=== PATIENT | female | born 1990 | race Caucasian/White ===

== ENCOUNTER 2017-03-01 15:16 | Emergency (ER) | payer OTHER ==
[2017-03-01 15:38] VITALS: BP 144/88; PULSE 99; RESP 18; TEMP 98.7; O2SAT 99
[2017-03-01] MEDS ORDERED: Naproxen 500 MG TAB PO ONE ×2 (15:51→15:53)
--- NOTE | 2017-03-01 16:23 | ED PDOC ---
HPI: CCC, URI, Sore Throat Time Seen by Provider: 03/01/17 15:45 Chief Complaint (Nursing): ENT Problem Chief Complaint (Provider): ENT Problem History Per: Patient Onset/Duration Of Symptoms: Days (x2) Additional Complaint(s): Sylvie Koo, 26 year old female presents to the ED on 03/01/17 with a left earache occurring for 2 days prior to arrival along with a right earache beginning a few hours prior to arrival. The patient has a history of ear infections. She denies any hearing changes, sore throat, fever, and has no past pertinent medical history. Past Medical History Reviewed: Historical Data, Nursing Documentation, Vital Signs Vital Signs: Last Vital Signs Temp 98.7 F 03/01/17 15:35 Pulse 99 H 03/01/17 15:35 Resp 18 03/01/17 15:35 BP 144/88 03/01/17 15:35 Pulse Ox 99 03/01/17 16:25 - Medical History PMH: Anxiety - Family History Family History: States: Unknown Family Hx - Home Medications Home Medications: Ambulatory Orders Medication Instructions Recorded Amoxicillin/Clavulanate Pota 1 tab PO BID #14 tab 06/08/15 [Augmentin 875 mg-125 mg] Ibuprofen [Motrin] 600 mg PO Q6H PRN #15 tab 06/08/15 Amoxicillin/Clavulanate [Augmentin 1 tab PO BID #20 tab 03/01/17 500 MG-125 MG] Naproxen [Naprosyn] 500 mg PO BID PRN #30 tab 03/01/17 - Allergies Allergies/Adverse Reactions: Allergies Allergy/AdvReac Type Severity Reaction Status Date / Time No Known Allergies Allergy Verified 06/08/15 12:35 Review of Systems Constitutional: Negative for: Fever ENT: Positive for: Ear Pain (left and right earache ). Negative for: Other (no hearing changes; no sore throat) Physical Exam - Reviewed Nursing Documentation Reviewed: Yes Vital Signs Reviewed: Yes - Physical Exam Appears: Positive for: Non-toxic, No Acute Distress Head Exam: Positive for: ATRAUMATIC, NORMOCEPHALIC Skin: Positive for: Normal Color, Warm, Dry Eye Exam: Positive for: Normal appearance ENT: Positive for: Normal ENT Inspection, TM Is/Are (bilateral TM's are erythematous and bulging). Negative for: Pharyngeal Erythema, Tonsillar Exudate (and no tonsillar erythema ) Neck: Positive for: Normal, Painless ROM Cardiovascular/Chest: Positive for: Regular Rate, Rhythm, Chest Non Tender Respiratory: Positive for: Normal Breath Sounds. Negative for: Respiratory Distress Gastrointestinal/Abdominal: Positive for: Normal Exam, Soft. Negative for: Tenderness Back: Positive for: Normal Inspection Extremity: Positive for: Normal ROM Neurologic/Psych: Positive for: Alert, Oriented (x3) - ECG O2 Sat by Pulse Oximetry: 99 (RA) Pulse Ox Interpretation: Normal Medical Decision Making Medical Decision Makin:45 Initial Impression: Earache Initial Plan: * Naproxen 500 mg PO Once * Reevaluation Scribe Attestation: Documented by Emilia Staley, acting as a scribe for Phillip Morales PA-C. Provider Scribe Attestation: All medical record entries made by the Scribe were at my direction and personally dictated by me. I have reviewed the chart and agree that the record accurately reflects my personal performance of the history, physical exam, medical decision making, and the department course for this patient. I have also personally directed, reviewed, and agree with the discharge instructions and disposition. Disposition - Clinical Impression Clinical Impression: Otitis media - Patient ED Disposition Is Patient to be Admitted: No - Disposition Referrals: [facility] [Outside] Denis Badillo MD [Staff Provider] - Disposition Time: 16:28 Condition: STABLE Prescriptions: Amoxicillin/Clavulanate [Augmentin 500 MG-125 MG] 1 tab PO BID #20 tab Naproxen [Naprosyn] 500 mg PO BID PRN #30 tab PRN Reason: Pain Instructions: Otitis Media (ED) Print Language: GAMBIAN
== END 2017-03-01 16:30 | disposition home or self-care (01) ==
LOC: H.ER 15:16
DX: H66.90 Otitis media, unspecified, unspecified ear (principal)

== ENCOUNTER 2017-06-07 03:27 | Emergency (ER) | payer MEDICAID, OTHER ==
[2017-06-07 03:40] VITALS: BP 141/98; PULSE 128; RESP 17; TEMP 98.6; O2SAT 99
--- NOTE | 2017-06-07 04:00 | ED PDOC ---
HPI: Psych/Substance Abuse Time Seen by Provider: 06/07/17 03:34 Chief Complaint (Nursing): Psychiatric Evaluation Chief Complaint (Provider): Psych evaluation History Per: Patient Additional Complaint(s): Patient is a 27 year old female who was brought to the emergency department by her father for a psych evaluation, reporting that she is upset because her friend was murdered two weeks ago. PCP: none provided. Past Medical History Reviewed: Historical Data, Nursing Documentation, Vital Signs Vital Signs: Last Vital Signs Temp 98.6 F 06/07/17 03:36 Pulse 128 H 06/07/17 03:36 Resp 17 06/07/17 03:36 BP 141/98 H 06/07/17 03:36 Pulse Ox 99 06/07/17 03:36 - Medical History PMH: Anxiety - Surgical History Other surgeries: Colostomy - Family History Family History: States: Unknown Family Hx - Social History Current smoker - smoking cessation education provided: Yes (a few cigarettes a day) Alcohol: Social Drugs: Denies - Home Medications Home Medications: Ambulatory Orders Medication Instructions Recorded Amoxicillin/Clavulanate Pota 1 tab PO BID #14 tab 06/08/15 [Augmentin 875 mg-125 mg] Ibuprofen [Motrin] 600 mg PO Q6H PRN #15 tab 06/08/15 Amoxicillin/Clavulanate [Augmentin 1 tab PO BID #20 tab 03/01/17 500 MG-125 MG] Naproxen [Naprosyn] 500 mg PO BID PRN #30 tab 03/01/17 - Allergies Allergies/Adverse Reactions: Allergies Allergy/AdvReac Type Severity Reaction Status Date / Time No Known Allergies Allergy Verified 06/08/15 12:35 Review of Systems ROS Statement: Except As Marked, All Systems Reviewed And Found Negative Psych: Positive for: Anxiety Physical Exam - Reviewed Nursing Documentation Reviewed: Yes Vital Signs Reviewed: Yes - Physical Exam Appears: Positive for: Non-toxic Head Exam: Positive for: ATRAUMATIC, NORMAL INSPECTION, NORMOCEPHALIC Skin: Positive for: Normal Color, Warm, Dry Eye Exam: Positive for: Normal appearance, PERRL Neck: Positive for: Normal, Supple Cardiovascular/Chest: Positive for: Regular Rate, Rhythm. Negative for: Murmur Respiratory: Positive for: Normal Breath Sounds. Negative for: Accessory Muscle Use, Respiratory Distress Gastrointestinal/Abdominal: Positive for: Normal Exam, Soft Extremity: Positive for: Normal ROM. Negative for: Pedal Edema Neurologic/Psych: Positive for: Alert, Oriented - ECG O2 Sat by Pulse Oximetry: 99 (RA) Pulse Ox Interpretation: Normal Medical Decision Making Medical Decision Making: Time: 03:55 Initial Plan:psych eval. -Crisis Evaluation -Urine -Reevaluation 04:28 pt initially placed on a 1-1 until seen by crisis Clinical Impression: Grief Patient is cleared for discharge by Dr. Bennett. pt agreeable to plan.. Upon provider reevaluation patient is feeling better, is medically stable, and requires no further treatment in the ED at this time. Counseling was provided and all questions were answered regarding diagnosis. There is agreement to discharge plan. Return if symptoms persist or worsen. Scribe Attestation: Documented by Bertha Mistry, acting as a scribe for Soni Sands MD Provider Scribe Attestation: All medical record entries made by the Scribe were at my direction and personally dictated by me. I have reviewed the chart and agree that the record accurately reflects my personal performance of the history, physical exam. Disposition - Clinical Impression Clinical Impression: Grief reaction - Patient ED Disposition Is Patient to be Admitted: No Counseled Patient/Family Regarding: Studies Performed, Diagnosis, Need For Followup - Disposition Referrals: [facility] [Outside] [facility] [[facility]] Disposition: Routine/Home Disposition Time: 05:00 Condition: IMPROVED Additional Instructions: follow up with mental health return to the ED with any worsening or concerning symptoms. Instructions: Grief and Loss (ED) Forms: [facility] ([place])
== END 2017-06-07 04:56 | disposition home or self-care (01) ==
LOC: H.ER 03:27
DX: F43.20 Adjustment disorder, unspecified (principal); F41.9 Anxiety disorder, unspecified